=== PATIENT | male | born 1950 | race Caucasian/White ===

== ENCOUNTER 2019-03-10 11:34 | Emergency (ER) | payer OTHER, SELFPAY ==
[2019-03-10 11:34] VITALS: BP 154/97; PULSE 68; RESP 20; TEMP 36.4; O2SAT 96; BMI 31.5
--- NOTE | 2019-03-10 11:38 | ED_ITS ---
Entered by Abi Daniels, acting as scribe for Elin Jordan PA Documented by User: Sandee Marquez MD 03/10/19 15:18 HPI - Fall General: Chief Complaint: Fall Stated Complaint: Fall-hit head Time Seen by Provider: 03/10/19 11:35 [facility] ED PFSH: Statuses (acute, chronic, etc) shown below reflect problem list status as previously entered and may not be historically accurate Social History Smoking and tobacco status: former smoker Physical Exam Const: COMMON NORMALS: no apparent distress, oriented x3 and healthy appearing HENMT: COMMON NORMALS: normocephalic HEAD & SCALP: normocephalic OTHER: very large hematoma to right eye. Eye: COMMON NORMALS: PERRL and EOMs intact bilaterally PUPIL: Yes PERRL Neck/C-Spine: OTHER: in a c collar complain of neck pain. Chest: COMMONS NORMALS: inspection of chest normal and palpation of chest normal Resp: COMMON NORMALS: normal respiratory effort, no retractions, no use of accessory muscles and clear to auscultation bilaterally AUSCULTATION: clear to auscultation bilaterally Cardio: COMMON NORMALS: regular rate, regular rhythm and no murmurs RATE: regular rate RHYTHM: regular rhythm GI: COMMON NORMALS: normal to inspection, nondistended, normoactive bowel sounds, soft to palpation, non-tender and no masses PALPATION: Yes soft Extremity: COMMON NORMALS: normal to inspection and full ROM Neuro: COMMON NORMALS: oriented x3, moves all extremities and no focal motor deficits Psych: COMMON NORMALS: mental status grossly normal, thought process normal and cooperative THOUGHT PROCESS: normal thought process Skin: COMMON NORMALS: no rashes or lesions noted and no wounds GENERAL SKIN EXAM: no rashes or lesions noted Course Vital Signs: Vital signs: Vital Signs Temperature 98.4 F 03/10/19 19:05 Pulse Rate 86 03/10/19 19:05 Respiratory Rate 16 03/10/19 19:05 Blood Pressure 152/96 03/10/19 19:05 Pulse Oximetry 95 03/10/19 19:05 MDM - Fall MDM Narrative: Medical decision making narrative: Saw patient with midlevel Elin Jordan. Patient has a C1 and C2 cervical spine fracture. Patient is currently in a c-collar. I spoke to [facility] and will transfer there for higher level of care for spine surgery. Patient is neurologically intact here. Discharge Plan Discharge Patient Disposition: Xfer Other Clinical Impression: Cervical spine fracture Qualifiers: Encounter type: initial encounter Cervical vertebra fracture level: C1 Fracture type: closed Fracture alignment: nondisplaced Condition: Stable Referrals: Quinton Doyle DO [Family Provider] - Discharge Date/Time: 03/10/19 19:09 Coding Level of Care Code ED Electronic Equipment Installer for Chg Fwd Exam Problem Focused Documented by User: MARY LOU Pabon 03/13/19 17:05 HPI - Fall General: Chief Complaint: Fall Stated Complaint: Fall-hit head Time Seen by Provider: 03/10/19 11:35 Source: patient, EMS and RN notes reviewed Mode of arrival: EMS Limitations: no limitations History of Present Illness: HPI Narrative: 68 yo male presents to ED following a fall. The patient has pain in his head, neck and bilateral knees. He has severe swelling and a laceration above his R eye and his R eye is swollen shut. The patient was not in a C collar upon arrival. The patient is a resident at [facility] senior living. The patient was transferring from his wheelchair to a seat at the table when he lost his balance and fell. The patient has a history of hemorrhagic stroke x 2 and has balance problems due to that. MD complaint: fall Onset (ago): minute(s) (just prior to arrival) Fall from: standing Fall witnessed: yes, by living facility staff Place fall occurred: senior living[facility]NF Loss of consciousness: None Symptoms prior to fall: none Context: tripped/slipped Location of injury: head, face, eyes and neck Location of injury - extremities: Bilateral: knee Severity: severe Quality: throbbing Associated symptoms-after fall: Reports neck pain Review of Systems Const: Denies: fever, chills, body aches or fatigue Eyes: Denies: change in vision, blurry vision, photophobia or eye discharge ENMT: Denies: throat pain, enlarged tonsils, painful swallowing, swelling of lips/tongue, oral sores/lesions, ear pain, ear discharge, nasal discharge, nasal congestion, post nasal drip or facial/sinus pain Resp: Denies: productive cough or non-productive cough Musc: Reports: neck pain All/Imm: Denies: seasonal allergies PFSH ED PFSH: Statuses (acute, chronic, etc) shown below reflect problem list status as previously entered and may not be historically accurate Social History Smoking and tobacco status: former smoker Physical Exam Eye: GENERAL EYE: normal light reflex DIRECT OPHTHALMOSCOPY: Yes normal light reflex OTHER: large R hematoma; there is no evidence for globe injury Course Vital Signs: Vital signs: Vital Signs Temperature 98.4 F 03/10/19 19:05 Pulse Rate 86 03/10/19 19:05 Respiratory Rate 16 03/10/19 19:05 Blood Pressure 152/96 03/10/19 19:05 Pulse Oximetry 95 03/10/19 19:05 MDM - Fall MDM Narrative: Medical decision making narrative: pt arrived via EMS w/o c collar; during my exam he did complain of neck pain so RN was instructed to place c-collar on patient; CT imaging will be obtained and care was transferred to Dr. Marquez. Imaging Data^: CT Head: Radiologist's impression: [place] [address] CT Scan Report Signed Patient: Lavelle Presley #: [id number] : 2Acct#:[id number] Age/Sex: 68 / MADM Date: 03/10/19 Loc: ERRoom/Bed: Attending Dr: Ordering Provider/Ordering MD: Elin Jordan Date of Service: 03/10/19 Procedure(s): CT head wo con* [id number] Accession Number(s): [id number] Report Number: [id number] WS: [id number] CT HEAD NONCONTRAST HISTORY: trauma TECHNIQUE: Contiguous axial imaging performed through the brain in 2.5 mm imaging. Bone and soft tissue windows. Sagittal and coronal reformats reviewed. All CT scans at [facility] use at least one of these dose optimization techniques: automated exposure control; mA and/or kV adjustment per patient size (includes targeted exams where dose is matched to clinical indication); or iterative reconstruction. DLP: 791.11 mGy.cm COMPARISON: 01/09/2018 No acute intracranial hemorrhage, midline shift or mass effect. Moderate atrophy with severe chronic confluent white matter disease. Bilateral basal ganglial lacunar infarcts. Ventricles: Ventricles Axial spaces are moderately dilated on the basis of central and peripheral atrophy. Paranasal sinuses: Extensive bilateral ethmoid air cell disease. No air-fluid levels in the maxillary sinuses as visualized. Mastoid air cells: Mastoid there clear. Increased cerumen along the RIGHT external auditory canal. Calvarium and scalp: No calvarial fracture. There is a large scalp hematoma centered over the RIGHT frontal bone with laceration. Hematoma extends from the RIGHT frontal bone inferiorly by at least 10 cm over the RIGHT orbit and globe. Transverse measurement of 7 cm and hematoma does cross the midline. There is some increased density suggesting may be some active bleeding. Mixed density from various stages of bleeding. Prior banding of the RIGHT globe. CT/CT head wo con* [id number] IMPRESSION: 1. No acute intracranial hemorrhage or edema. 2. Moderate atrophy and prior ischemic disease with mild progression since 01/09/2018. 3. Large scalp hematoma centered over the RIGHT frontal bone and orbit/globe measuring at least 10 x 7 cm. May be some active bleeding as there is mixed density within the hematoma. 4. No skull fracture identified. Facial bone CT to follow. Dictated By:Melissa Mondragon DO Signed By:Melissa Mondragon DOSigned Date/Time:03/10/19 1316 DD/ Other CT: Radiologist's impression: [address] [address] [address] Scan Report Signed Patient: Lavelle Presley #: [id number] : 2Acct#:[id number] Age/Sex: 68 / MADM Date: 03/10/19 Loc: ERRoom/Bed: Attending Dr: Ordering Provider/Ordering MD: Elin Jordan Date of Service: 03/10/19 Procedure(s): CT facial bones wo con* [id number] Accession Number(s): [id number] Report Number: [id number] WS: [id number] CT FACIAL BONES HISTORY: fall; large R periorbital hematoma TECHNIQUE: Images obtained from the supraorbital location through the mandible. Soft tissue and bone windows are reviewed. Coronal and sagittal reformats have also been submitted. DLP: 816.[address] scans at [facility] use at least one of these dose optimization techniques: automated exposure control; mA and/or kV adjustment per patient size (includes targeted exams where dose is matched to clinical indication); or iterative reconstruction. COMPARISON: None available. No facial bone fractures are identified. No air-fluid levels in the frontal sinuses. Mucoperiosteal thickening bilaterally within the ethmoid air cells. There is a large scalp hematoma centered over the RIGHT frontal bone and extending inferiorly over the RIGHT orbit and globe. Hematoma extends lateral to the zygomatic arch and medial over the nasal bones and crosses the midline. No retro-orbital extension. Calcification noted within the intracranial carotid artery. There is a cervical spine fracture identified. There is a C2 fracture which is comminuted. C2 anterolisthesis by 3.2 mm. There is also fracture involving the ring of C1. These fractures will be better described on the following cervical spine CT. CT/CT facial bones wo con* [id number] IMPRESSION: 1. Acute C1 and C2 fractures. These fractures will be better evaluated on the cervical spine CT to follow. 2. No skull fracture. 3. Large scalp hematoma with laceration centered over the RIGHT frontal bone extending over the orbit and globe. Dictated By:Melissa Mondragon DO Signed By:Melissa Mondragon DOSigned Date/Time:03/10/19 1321 DD/ [address] [address] [address] Scan Report Signed Patient: Lavelle Presley #: [id number] : 2Acct#:[id number] Age/Sex: 68 / MADM Date: 03/10/19 Loc: ERRoom/Bed: Attending Dr: Ordering Provider/Ordering MD: Elin Jordan Date of Service: 03/10/19 Procedure(s): CT cervical spin wo con* [id number] Accession Number(s): [id number] Report Number: [id number] WS: [id number] CT CERVICAL SPINE HISTORY: fall; neck pain TECHNIQUE: Contiguous 2.5 mm axial imaging performed through the entire cervical spine. Sagittal and coronal reformats also performed. All CT scans at [facility] use at least one of these dose optimization techniques: automated exposure control; mA and/or kV adjustment per patient size (includes targeted exams where dose is matched to clinical indication); or iterative reconstruction. DLP: 678.75 mGy.cm COMPARISON: 01/09/2018 Craniocervical junction is normally aligned. C1: Burst fracture. There are fractures involving the anterior ring of C1 and additional bilateral fractures through the posterior ring. There is very slight lateral displacement of the RIGHT articular mass. C2: C2 anterolisthesis by 3.3 mm is similar to the prior study. There is an acute odontoid fracture. Fracture extends through the base of the odontoid process. 2.5 mm separation along the odontoid process. T2: New anterior compression fracture involving T2. Sclerosis along the superior endplate of the T2 vertebral body with a small avulsion fracture extending anteriorly from the superior endplate. There is mild widening of the facet joints of C2 and C3 which is new since 01/09/2018 suggesting ligamentous injury. Severe degenerative disc disease at C5-6, C6-7. Multilevel facet joint arthropathy and hypertrophic bone formation. Multilevel central and bilateral foraminal stenosis. No additional acute fractures are identified. Lung apices are clear. Notified Dr. MARQUEZ at 03/10/2019 1:[address]/CT cervical spin wo con* [id number] IMPRESSION: 1. Yung type fracture involving C1. Burst fracture of the anterior and posterior ring. 2. Comminuted fracture involving the base of the odontoid process with separation by 2.5 mm. 3. C2 anterolisthesis by 3.3 mm is similar to the prior study. 4. New anterior compression fracture of T2 without retropulsion. 5. Severe multilevel facet joint arthropathy with multilevel areas of stenosis in the cervical spine. 6. New mild diastases of the facet joints of C2 and C3 suggesting ligamentous injury. Dictated By:Melissa Mondragon DO Signed By:Melissa Mondragon DOSigned Date/Time:03/10/19 1341 DD/ Discharge Plan Discharge Patient Disposition: Xfer Other Clinical Impression: Cervical spine fracture Qualifiers: Encounter type: initial encounter Cervical vertebra fracture level: C1 Fracture type: closed Fracture alignment: nondisplaced Condition: Stable Referrals: Quinton Doyle DO [Family Provider] - Discharge Date/Time: 03/10/19 19:09 Coding Level of Care Code ED Electronic Equipment Installer for Chg Fwd Exam Problem Focused The documentation recorded by the Frances cruz Valerie R, accurately reflects the service I personally performed and the decisions made by , Elin Jordan PA Mar 10, 2019 11:34
--- NOTE | 2019-03-10 11:45 | CT_ITS ---
WS: [id number] CT FACIAL BONES HISTORY: fall; large R periorbital hematoma TECHNIQUE: Images obtained from the supraorbital location through the mandible. Soft tissue and bone windows are reviewed. Coronal and sagittal reformats have also been submitted. DLP: 816.[address] scans at [facility] use at least one of these dose optimization techniques: automat ed exposure control; mA and/or kV adjustment per patient size (includes targeted exams where dose is matched to clinical indication); or iterative reconstruction. COMPARISON: None available. No facial bone fractures are identified. No air-fluid levels in the frontal sinuses. Mucoperiosteal t hickening bilaterally within the ethmoid air cells. There is a large scalp hematoma centered over the RIGHT frontal bone and extending inferiorly over the RIGHT orbit and globe. Hematoma extends lateral to the zygomatic arch and medial over the nasal bones and crosses the midline. No retro-orbital exte nsion. Calcification noted within the intracranial carotid artery. There is a cervical spine fracture identified. There is a C2 fracture which is comminuted. C2 anterol isthesis by 3.2 mm. There is also fracture involving the ring of C1. These fractures will be better d escribed on the following cervical spine CT. CT/CT facial bones wo con* [id number] IMPRESSION: 1. Acute C1 and C2 fractures. These fractures will be better evaluated on the cervical spine CT to follow. 2. No skull fracture. 3. Large scalp hematoma with laceration centered over the RIGHT frontal bone e xtending over the orbit and globe.
--- NOTE | 2019-03-10 11:45 | CT_ITS ---
WS: [id number] CT HEAD NONCONTRAST HISTORY: trauma TECHNIQUE: Contiguous axial imaging performed through the brain in 2.5 mm imaging. Bone and soft tiss ue windows. Sagittal and coronal reformats reviewed. All CT scans at [facility] use at ast one of these dose optimization techniques: automated exposure control; mA and/or kV adjustment pe r patient size (includes targeted exams where dose is matched to clinical indication); or iterative r econstruction. DLP: 791.11 mGy.cm COMPARISON: 01/09/2018 No acute intracranial hemorrhage, midline shift or mass effect. Moderate atrophy with severe chronic confluent white matter disease. Bilateral basal ganglial lacunar infarcts. Ventricles: Ventricles Axial spaces are moderately dilated on the basis of central and peripheral atrophy. Paranasal sinuses: Extensive bilateral ethmoid air cell disease. No air-fluid levels in the maxillary sinuses as visualized. Mastoid air cells: Mastoid there clear. Increased cerumen along the RIGHT external auditory canal. Calvarium and scalp: No calvarial fracture. There is a large scalp hematoma centered over the RIGHT f rontal bone with laceration. Hematoma extends from the RIGHT frontal bone inferiorly by at least 10 c m over the RIGHT orbit and globe. Transverse measurement of 7 cm and hematoma does cross the midline. There is some increased density suggesting may be some active bleeding. Mixed density from various s tages of bleeding. Prior banding of the RIGHT globe. CT/CT head wo con* [id number] IMPRESSION: 1. No acute intracranial hemorrhage or edema. 2. Moderate atrophy and prior ischemic disease with mild progression since 01/09/2018. 3. Large scalp hematoma centered over the RIGHT frontal bone and orbit/globe m easuring at least 10 x 7 cm. May be some active bleeding as there is mixed dens ity within the hematoma. 4. No skull fracture identified. Facial bone CT to follow.
--- NOTE | 2019-03-10 11:45 | CT_ITS ---
WS: [id number] CT CERVICAL SPINE HISTORY: fall; neck pain TECHNIQUE: Contiguous 2.5 mm axial imaging performed through the entire cervical spine. Sagittal and coronal reformats also performed. All CT scans at [facility] use at least one of these do se optimization techniques: automated exposure control; mA and/or kV adjustment per patient size (inc ludes targeted exams where dose is matched to clinical indication); or iterative reconstruction. DLP: 678.75 mGy.cm COMPARISON: 01/09/2018 Craniocervical junction is normally aligned. C1: Burst fracture. There are fractures involving the anterior ring of C1 and additional bilateral fr actures through the posterior ring. There is very slight lateral displacement of the RIGHT articular mass. C2: C2 anterolisthesis by 3.3 mm is similar to the prior study. There is an acute odontoid fracture. Fracture extends through the base of the odontoid process. 2.5 mm separation along the odontoid proce ss. T2: New anterior compression fracture involving T2. Sclerosis along the superior endplate of the T2 v ertebral body with a small avulsion fracture extending anteriorly from the superior endplate. There is mild widening of the facet joints of C2 and C3 which is new since 01/09/2018 suggesting ligam entous injury. Severe degenerative disc disease at C5-6, C6-7. Multilevel facet joint arthropathy and hypertrophic b one formation. Multilevel central and bilateral foraminal stenosis. No additional acute fractures are identified. Lung apices are clear. Notified Dr. MARQUEZ at 03/10/2019 1:[address]/CT cervical spin wo con* [id number] IMPRESSION: 1. Yung type fracture involving C1. Burst fracture of the anterior and po sterior ring. 2. Comminuted fracture involving the base of the odontoid process with separat ion by 2.5 mm. 3. C2 anterolisthesis by 3.3 mm is similar to the prior study. 4. New anterior compression fracture of T2 without retropulsion. 5. Severe multilevel facet joint arthropathy with multilevel areas of stenosis in the cervical spine. 6. New mild diastases of the facet joints of C2 and C3 suggesting ligamentous injury.
[2019-03-10] MEDS: ondansetron 2 mg/ML SDV 2 mL 4 MG IVP (12:23)
[2019-03-10] MEDS: tetanus-diphtheria tox (adult) 0.5 mL SDV IM (12:25)
--- NOTE | 2019-03-10 15:30 | PC.NURSE ---
Report called to DIA Oliva. Report called to LACEY Capps on 6E at [phone].
[2019-03-10 19:05] VITALS: BP 152/96; PULSE 86; RESP 16; TEMP 36.9; O2SAT 95
== END 2019-03-10 19:09 | disposition other institution (70) ==
PROVIDERS: Emergency Provider Emergency Medicine; Family Provider Internal Medicine
DX: S12.001A Unspecified nondisplaced fracture of first cervical vertebra, initial encounter for closed fracture (principal); Z87.891 Personal history of nicotine dependence; W19.XXXA Unspecified fall, initial encounter; Y92.129 Unspecified place in nursing home as the place of occurrence of the external cause; Z23 Encounter for immunization; S01.111A Laceration without foreign body of right eyelid and periocular area, initial encounter
CPT/HCPCS: 70450; 70486; 72125; 90471; 90714; 96374; 97760; 99281; 99285; J2405; L0174

== ENCOUNTER → 2019-09-09 13:08 | Outpatient (BNVA) | payer OTHER, SELFPAY | PROVIDERS: Family Provider Internal Medicine; Referring Provider Internal Medicine; Visit Provider Orthopaedic Surgery | DX: M17.0 Bilateral primary osteoarthritis of knee (principal); M25.462 Effusion, left knee; M25.461 Effusion, right knee | CPT/HCPCS: 73560; 73565 ==

== ENCOUNTER 2020-04-18 19:45 | Emergency (ER) | payer OTHER, SELFPAY ==
[2020-04-18 19:50] VITALS: BP 167/83; PULSE 84; RESP 17; TEMP 36.9; O2SAT 95; BMI 34.4
--- NOTE | 2020-04-18 20:23 | XR_ITS ---
WS: [id number] XR femur RT min 2V* [id number] REASON FOR EXAM: fall FINDINGS: Total right hip arthroplasty. No dislocation or fracture of the prosthesis or bony structure. Distal femur intact. XR/XR femur RT min 2V* [id number] IMPRESSION: No acute abnormality.
--- NOTE | 2020-04-18 20:23 | CTR_ITS ---
PROCEDURE INFORMATION: Exam: CT Head Without Contrast Exam date and time: 04/18/2020 8:29 PM Age: 69 years old Clinical indication: Injury or trauma; Blunt trauma (contusions or hematomas); Consciousness not specified; Patient HX: Nh PT w dementia - unwitnessed fall - unknown loc TECHNIQUE: Imaging protocol: Computed tomography of the head without contrast. Radiation optimization: All CT scans at this facility use at least one of these dose optimization techniques: automated exposure control; mA and/or kV adjustment per patient size (includes targeted exams where dose is matched to clinical indication); or iterative reconstruction. ADDITIONAL STUDY INFORMATION: Total DLP (mGy-cm): 1007.69 COMPARISON: CT head wo con* [id number] 03/10/2019 1:03 PM FINDINGS: Examination is limited by artifacts from patient motion. There is approximately 12 x 10 x 7 mm area of increased density in the right richard, most compatible with recent hemorrhage, could represent shear injury related to recent trauma, please correlate clinically. There is prominent low density in the bilateral periventricular white matter which may represent chronic small vessel ischemic disease in the appropriate clinical setting. The possibility of superimposed acute infarctions cannot be excluded; consider MRI brain (including diffusion images) for further assessment if clinically warranted and if patient has no contraindication to MRI. There are prominent intracranial arterial calcifications. There is moderate cerebral cortical volume loss. Ventricles do not appear significantly dilated. No definite depressed calvarial fracture is demonstrated. There is opacification in visualized bilateral ethmoid air cells, most compatible with mucosal disease. Visualized mastoid air cells demonstrate no significant opacification. CT/CT head wo con* [id number] IMPRESSION: Examination is limited by artifacts from patient motion. There is approximately 12 x 10 x 7 mm area of increased density in the right richard, most compatible with recent hemorrhage, could represent shear injury related to recent trauma, please correlate clinically. Probable prominent chronic ischemic changes as discussed above. THIS REPORT CONTAINS FINDINGS THAT MAY BE CRITICAL TO PATIENT CARE. The findings were verbally communicated via telephone conference with ELI Guillory at 9:05 PM CDT on 04/18/2020. The findings were acknowledged, understood and read back by ELI Guillory. Radiation Dose CTDIVOL = (mGy): DLP = 1007.69 (mGy-cm)
--- NOTE | 2020-04-18 20:23 | XR_ITS ---
WS: [id number] XR tibia fibula RT 2V [id number] REASON FOR EXAM: fall FINDINGS: No focal bony abnormality. No significant soft tissue abnormality. XR/XR tibia fibula RT 2V [id number] IMPRESSION: No acute abnormality.
--- NOTE | 2020-04-18 20:51 | ED_ITS ---
HPI - Fall General: Chief Complaint: Fall Stated Complaint: FALL Time Seen by Provider: 04/18/20 19:53 History of Present Illness: HPI Narrative: 69-year-old male retirement patient comes in after a fall. He probably struck his head, although he does not remember. skilled nursing staff believes that he did. His main complaint is right knee pain. He has a history of dementia. However, he is awake and talking sensibly. complaint: fall Onset (ago): minute(s) Fall from: other (Unknown) Fall witnessed: no Place fall occurred: retirement/SNF Loss of consciousness: None Prolonged down time: no Symptoms prior to fall: none Quality: aching and throbbing Associated symptoms-after fall: Reports other; Denies abdominal pain, chest pain, confusion, headache(s), neck pain or short of breath Review of Systems Const: Denies: fever(s) Eyes: Denies: change in vision Card: Denies: chest pain Resp: Denies: dyspnea or productive cough GI: Denies: abdominal pain, nausea or vomiting Musc: Denies: neck pain Neuro: Denies: headache(s) or confusion PFSH ED PFSH: Social History Smoking and tobacco status: former smoker Physical Exam Const: COMMON NORMALS: no acute distress and alert Eye: COMMON NORMALS: EOMs intact bilaterally Chest: COMMONS NORMALS: normal inspection of the chest Resp: COMMON NORMALS: normal respiratory effort, No use of accessory muscles and clear to auscultation bilaterally AUSCULTATION: clear to auscultation bilaterally Cardio: COMMON NORMALS: regular rate and regular rhythm RATE: regular rate RHYTHM: regular rhythm GI: COMMON NORMALS: Normal to inspection, nondistended, normoactive bowel sounds present, Soft to palpation and non-tender PALPATION: Yes Soft to palpation Extremity: NARRATIVE EXTREMITY EXAM: Exam of the right lower extremity reveals distal femur tenderness. There is no tibial tenderness. There is no deformity. Knee joint is effused. Neuro: SENSORIUM/ORIENTATION: Yes alert Course Consultations: Consultation #1: Brain, ER [facility] Vital Signs: Vital signs: Vital Signs Temperature 98.4 F 04/18/20 19:50 Pulse Rate 84 04/18/20 21:57 Respiratory Rate 14 04/18/20 21:57 Blood Pressure 182/96 04/18/20 21:57 Pulse Oximetry 96 04/18/20 21:57 MDM - Fall MDM Narrative: Medical decision making narrative: CT shows richard hemorrhage. he is awake and alert. answering most questions appropriately. asymptomatic. spoke with his daughter who is a nurse. She agrees and wishes for transfer for neurosurgical eval/care. spoke with [facility]. they accept in [facility]. no helo transfers available due to weather, so will have to go by ground ems. As this is a traumatic brain bleed, the patient is given tranexamic acid. Lab Data: Labs: Lab Results 04/18/20 04/18/20 04/18/20 Range/Units 21:30 21:30 21:30 WBC 13.6 H (4.0-10.0) 10^3/ uL RBC 5.15 (4.1-5.3) 10^6/u L Hgb 14.7 (11.7-16.6) g/dL Hct 45.5 (42.0-52.0) % MCV 88.3 (80-94) fL MCH 28.5 (28.0-34.0) pg MCHC 32.3 (30.0-36.0) g/dL RDW 13.8 (12.1-15.1) % Plt Count 292 (130-400) 10^3/c mm MPV 8.7 (7.4-10.4) fL Neut % (Auto) 88.1 % Lymph % (Auto) 3.7 % Baker % (Auto) 7.2 % Eos % (Auto) 0.1 % Baso % (Auto) 0.3 % Neut # (Auto) 11.95 H (1.8-7.7) 10^3/u L Lymph # (Auto) 0.5 L (0.8-4.8) 10^3/u L Baker # (Auto) 1.0 H (0.2-0.9) 10^3/u L Eos # (Auto) 0.0 (0.0-0.8) 10^3/u L Baso # (Auto) 0.0 (0.0-0.1) 10^3/u L Nucleated RBC % (a uto) 0 % Nucleated RBCs # 0.0 /100WBC PT 14.10 (12.1-14.9) SECO NDS INR 1.06 (0.8-1.2) APTT 32.1 (23.9-36.7) SECO NDS Sodium 138 (136-145) mmol/L Potassium 4.3 (3.5-5.1) mmol/L Chloride 98 (98-107) mmol/L Carbon Dioxide 30 H (22-29) mmol/L Anion Gap 14.3 (5-19) BUN 18 (8-23) mg/dL Creatinine 0.8 (0.7-1.2) mg/dL GFR Calculation 96.1 (90-130) mL/min Glucose 113 (65-115) mg/dL Calculated Osmolal ity 289 (285-295) mOsm/k g Calcium 8.5 (8.5-10.5) mg/dL Total Bilirubin 0.7 (0.15-1.2) mg/dL AST 13 (0-40) U/L ALT 16 (0-41) U/L Alkaline Phosphata se 96 (40-130) IU/L Creatine Kinase 110 (39-308) U/L Troponin T Gen 5 n g/L (0-15) ng/L Total Protein 6.4 L (6.6-8.7) g/dL Albumin 3.8 (3.5-5.2) g/dL Globulin 2.6 (1.3-4.6) g/dL Urine Color (Yellow) Urine Appearance (CLEAR) Urine pH (5-7) Ur Specific Gravit y (1.005-1.030) Urine Protein (Negative) Urine Glucose (UA) (Normal) Urine Ketones (Negative) Urine Blood (Negative) Urine Nitrate (Negative) Urine Bilirubin (Negative) Urine Urobilinogen (Negative) mg/dL Ur Leukocyte Nazia ase (Negative) Urine RBC (0-2) /hpf Urine WBC (0-5) /hpf Ur Squamous Epith Cells (0-5) /hpf Amorphous Sediment Urine Bacteria (NONE) /hpf 04/18/20 04/18/20 Range/Units 21:30 21:40 WBC (4.0-10.0) 10^3/ uL RBC (4.1-5.3) 10^6/u L Hgb (11.7-16.6) g/dL Hct (42.0-52.0) % MCV (80-94) fL MCH (28.0-34.0) pg MCHC (30.0-36.0) g/dL RDW (12.1-15.1) % Plt Count (130-400) 10^3/c mm MPV (7.4-10.4) fL Neut % (Auto) % Lymph % (Auto) % Baker % (Auto) % Eos % (Auto) % Baso % (Auto) % Neut # (Auto) (1.8-7.7) 10^3/u L Lymph # (Auto) (0.8-4.8) 10^3/u L Baker # (Auto) (0.2-0.9) 10^3/u L Eos # (Auto) (0.0-0.8) 10^3/u L Baso # (Auto) (0.0-0.1) 10^3/u L Nucleated RBC % (a uto) % Nucleated RBCs # /100WBC PT (12.1-14.9) SECO NDS INR (0.8-1.2) APTT (23.9-36.7) SECO NDS Sodium (136-145) mmol/L Potassium (3.5-5.1) mmol/L Chloride (98-107) mmol/L Carbon Dioxide (22-29) mmol/L Anion Gap (5-19) BUN (8-23) mg/dL Creatinine (0.7-1.2) mg/dL GFR Calculation (90-130) mL/min Glucose (65-115) mg/dL Calculated Osmolal ity (285-295) mOsm/k g Calcium (8.5-10.5) mg/dL Total Bilirubin (0.15-1.2) mg/dL AST (0-40) U/L ALT (0-41) U/L Alkaline Phosphata se (40-130) IU/L Creatine Kinase (39-308) U/L Troponin T Gen 5 n g/L 13 (0-15) ng/L Total Protein (6.6-8.7) g/dL Albumin (3.5-5.2) g/dL Globulin (1.3-4.6) g/dL Urine Color Yellow (Yellow) Urine Appearance Clear (CLEAR) Urine pH 5 (5-7) Ur Specific Gravit y 1.015 (1.005-1.030) Urine Protein Neg (Negative) Urine Glucose (UA) Norm (Normal) Urine Ketones 1+ H (Negative) Urine Blood 2+ H (Negative) Urine Nitrate Negative (Negative) Urine Bilirubin 1+ H (Negative) Urine Urobilinogen 1 H (Negative) mg/dL Ur Leukocyte Nazia ase Negative (Negative) Urine RBC 25-40 H (0-2) /hpf Urine WBC 0-4 H (0-5) /hpf Ur Squamous Epith Cells 0-4 H (0-5) /hpf Amorphous Sediment Not Reportable Urine Bacteria Trace (NONE) /hpf Critical Care Time Critical Care Time: Critical Care Time: Yes Total Critical Care Time: 35 Attestation: This case had a high probability of a clinically significant, sudden, or life threatening deterioration of this patient's condition which required my full and direct attention, intervention and personal management. Discharge Plan Discharge Patient Disposition: Xfer Short-Term Hosp Clinical Impression: Intracranial hemorrhage Condition: Stable Referrals: Quinton Doyle DO [Primary Care Provider] - Coding Level of Care Code ED Barrel Burner for Chg Fwd Exam Detailed
[2020-04-18 21:03] VITALS: BP 174/100; PULSE 83; RESP 14; O2SAT 94
--- NOTE | 2020-04-18 21:28 | ECG_ITS ---
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 Measurements Intervals [place] Rate: 84 P: 48 TN: 160 QRS: 4 QRSD: 112 T: 16 QT: 384 QTc: 455 Interpretive Statements SINUS RHYTHM INCOMPLETE RIGHT BUNDLE BRANCH BLOCK [90+ ms QRS DURATION, TERMINAL R IN V1/V2, 40+ ms S IN I/aVL/V4/V5/V6] No previous ECG available for comparison Electronically Signed On 04-21-2020 7:38:01 CDT by Maria Guadalupe Benson M.D. [id number] f
[2020-04-18 21:43] LABS: Basophils % 0.3 %; Eosinophils % 0.1 %; Hematocrit 45.5 % (42.0-52.0); Hemoglobin 14.7 g/dL (11.7-16.6); Lymphocytes # 0.5 10^3/uL (0.8-4.8); Lymphocytes % 3.7 %; Mean Corpuscular HGB Conc 32.3 g/dL (30.0-36.0); Mean Corpuscular Hemoglobin 28.5 pg (28.0-34.0); Mean Corpuscular Volume 88.3 fL (80-94); Mean Platelet Volume 8.7 fL (7.4-10.4); Monocytes % 7.2 %; Neutrophils # 11.95 10^3/uL (1.8-7.7); Neutrophils % 88.1 %; Nucleated Red Blood Cells % 0 %; Platelet Count 292 10^3/cmm (130-400); Red Blood Count 5.15 10^6/uL (4.1-5.3); Red Cell Distribution Width 13.8 % (12.1-15.1); White Blood Count 13.6 10^3/uL (4.0-10.0)
[2020-04-18 21:55] LABS: Alanine Aminotransferase 16 U/L (0-41); Albumin Level 3.8 g/dL (3.5-5.2); Alkaline Phosphatase 96 IU/L (40-130); Anion Gap 14.3 (5-19); Aspartate Amino Transferase 13 U/L (0-40); Blood Urea Nitrogen 18 mg/dL (8-23); Calcium 8.5 mg/dL (8.5-10.5); Carbon Dioxide 30 mmol/L (22-29); Chloride 98 mmol/L (98-107); Creatine Phosphokinase 110 U/L (39-308); Globulin 2.6 g/dL (1.3-4.6); Glomerular Filtration Rate 96.1 mL/min (90-130); Glucose 113 mg/dL (65-115); INR 1.06 (0.8-1.2); Osmolality Calculated 289 mOsm/kg (285-295); Potassium 4.3 mmol/L (3.5-5.1); Sodium 138 mmol/L (136-145); Total Bilirubin 0.7 mg/dL (0.15-1.2); Total Protein 6.4 g/dL (6.6-8.7)
[2020-04-18 21:56] LABS: Partial Thromboplastin Time 32.1 SECONDS (23.9-36.7)
[2020-04-18 21:57] VITALS: BP 182/96; PULSE 84; RESP 14; O2SAT 96
[2020-04-18 21:57] LABS: Troponin T (5th) Once 13 ng/L (0-15)
[2020-04-18 22:18] LABS: Glucose Urine UA Norm (Normal); Protein Urine Neg (Negative); Specific Gravity, Urine 1.015 (1.005-1.030); Urine Appearance Clear (CLEAR); Urine Color Yellow (Yellow); pH Urine 5 (5-7)
[2020-04-18 22:19] LABS: Add Urine Microscopic? YES; Bilirubin Urine 1+ (Negative); Blood Urine 2+ (Negative); Ketones Urine 1+ (Negative); Leukocyte Esterase Urine Negative (Negative); Nitrate Urine Negative (Negative); Urobilinogen Urine 1 mg/dL (Negative)
[2020-04-18 22:20] LABS: Add Urine Culture? Yes; Bacteria Urine TRACE /hpf; RBC Urine 25-40 /hpf (0-2); Squamous Epithelial Cell Urine 0-4 /hpf (0-5); WBC Urine 0-4 /hpf (0-5)
[2020-04-18] MEDS: ondansetron 2 mg/ML SDV 2 mL 4 MG IVP (22:21)
== END 2020-04-18 22:21 | disposition short-term general hospital (02) ==
PROVIDERS: Emergency Provider Emergency Medicine; PCP Internal Medicine
DX: S06.309A Unspecified focal traumatic brain injury with loss of consciousness of unspecified duration, initial encounter (principal); W19.XXXA Unspecified fall, initial encounter; Z87.891 Personal history of nicotine dependence
CPT/HCPCS: 51702; 70450; 73552; 73590; 80053; 81001; 82550; 84484; 85025; 85610; 85730; 87086; 93005; J2405

== ENCOUNTER 2020-10-28 09:03 | Outpatient (CLI) | payer OTHER, SELFPAY ==
--- NOTE | 2020-10-28 09:13 | USCV_ITS ---
Elvin Presley Age: 69 Gender: M : 1950 Exam Date: 10/28/2020 09:34 Ordering Phys: Juliette Crooks MD Technologist: Salma Beard Exam Location: [facility] Indication: NON HEALING SKIN LEASIONS Risk Factors: Previous Vascular Surgery: RIGHT LEFT Waveform Velocity (cm/s) Velocity (cm/s) Waveform Triphasic 165.6 Iliac Prox 152.6 Triphasic Triphasic 135.0 Iliac Mid 125.5 Triphasic Triphasic 136.2 Iliac Distal 144.9 Triphasic Triphasic 146.9 INFECTION CONTROL RN 116.5 Triphasic Triphasic 104.6 SFA Prox 153.8 Triphasic Triphasic 92.6 SFA Mid 95.9 Triphasic Triphasic 110.3 SFA Dist 131.2 Triphasic Triphasic 73.0 POP 89.1 Triphasic Biphasic 104.2 INSURANCE CLAIMS EXAMINER N/A N/A DPA N/A FINDINGS Very limited exam, pt unable to stand or walk. Open wounds and bandages, very limited. Unable to imaged Rt DPA, and Left DPA and INSURANCE CLAIMS EXAMINER due to pain. Unable to obtain BG's due to pain Normal Doppler flow velocities Normal Doppler waveforms CONCLUSIONS Possibly no significant arterial obstruction in the visualized arteries mentioned above. The left dorsalis pedis, posterior tibial and the right dorsalis pedis arteries were not visualized because of the bandages Dr Sandra Lewis MD [facility] (Electronically Signed) Final Date: 28 October 2020 20:30 S
== END 2020-10-28 09:04 | disposition home or self-care (01) ==
LOC: RAD 09:09
PROVIDERS: PCP Internal Medicine; Visit Provider Family Medicine
DX: L98.9 Disorder of the skin and subcutaneous tissue, unspecified (principal)
CPT/HCPCS: 93925

== ENCOUNTER 2021-08-26 04:54 | Outpatient (CLI) | payer MEDICARE, SELFPAY ==
[2021-08-26 05:05] LABS: Add Urine Microscopic? NO; Charge for UA Resulting for Rev
[2021-08-26 05:10] LABS: Basophils # 0.1 10^3/uL (0.0-0.1); Basophils % 0.6 %; Bilirubin Urine Neg (Negative); Blood Urine Neg (Negative); Eosinophils # 0.4 10^3/uL (0.0-0.8); Eosinophils % 3.3 %; Glucose Urine UA Norm (Normal); Hemoglobin 13.5 g/dL (11.7-16.6); Ketones Urine Negative (Negative); Leukocyte Esterase Urine Negative (Negative); Lymphocytes % 17.5 %; Mean Corpuscular HGB Conc 32.9 g/dL (30.0-36.0); Mean Corpuscular Hemoglobin 29.5 pg (28.0-34.0); Mean Corpuscular Volume 89.5 fl (80-94); Mean Platelet Volume 8.7 fL (7.4-10.4); Monocytes % 8.6 %; Neutrophils # 7.71 10^3/uL (1.8-7.7); Neutrophils % 69.2 %; Nitrate Urine Negative (Negative); Nucleated Red Blood Cells % 0 %; Platelet Count 305 10^3/cmm (130-400); Protein Urine Neg (Negative); Red Blood Count 4.58 10^6/uL (4.1-5.3); Red Cell Distribution Width 13.5 % (12.1-15.1); Urine Appearance Clear (CLEAR); Urine Color Yellow (Yellow); Urobilinogen Urine Norm (Negative); White Blood Count 11.2 10^3/uL (4.0-10.0); pH Urine 7 (5-7)
[2021-08-26 05:31] LABS: Alanine Aminotransferase 18 U/L (0-41); Albumin Level 4.1 g/dL (3.5-5.2); Alkaline Phosphatase 107 IU/L (40-130); Anion Gap 14.2 (5-19); Aspartate Amino Transferase 13 U/L (0-40); Blood Urea Nitrogen 19 mg/dL (8-23); Calcium 9.3 mg/dL (8.5-10.5); Carbon Dioxide 31 mmol/L (22-29); Chloride 97 mmol/L (98-107); Glomerular Filtration Rate 74.1 mL/min (90-130); Glucose 95 mg/dL (65-115); Osmolality Calculated 290 mOsm/kg (285-295); Potassium 3.2 mmol/L (3.5-5.1); Sodium 139 mmol/L (136-145); Total Bilirubin 0.5 mg/dL (0.15-1.2); Total Protein 7.1 g/dL (6.6-8.7)
== END 2021-08-26 04:55 | disposition home or self-care (01) ==
PROVIDERS: PCP Internal Medicine; Visit Provider Internal Medicine
DX: Z01.89 Encounter for other specified special examinations (principal)
CPT/HCPCS: 80053; 81003; 85025

== ENCOUNTER 2021-11-14 02:08 | Emergency (ER) | payer OTHER, SELFPAY ==
[2021-11-14] VITALS (8 sets, daily range): BP systolic 116–152; BP diastolic 63–89; PULSE 73–89; RESP 14–24; TEMP 37.6; O2SAT 94–98; BMI 33.0
--- NOTE | 2021-11-14 02:34 | ECG_ITS ---
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 Measurements Intervals [place] Rate: 77 P: 23 TX: 156 QRS: 13 QRSD: 97 T: 41 QT: 378 QTc: 429 Interpretive Statements SINUS RHYTHM POSSIBLE RIGHT VENTRICULAR CONDUCTION DELAY [RSR (QR) IN V1/V2] NONSPECIFIC ST & T-WAVE ABNORMALITY INTERPRETATION BASED ON A DEFAULT AGE OF 40 YEARS Compared to ECG 04/18/2020 21:53:00 T-wave abnormality now present Incomplete right bundle-branch block no longer present Electronically Signed On 11-14-2021 21:20:03 CDT by Sandra Lewis M.D. [id number]
--- NOTE | 2021-11-14 02:34 | XRR_ITS ---
PROCEDURE INFORMATION: Exam: XR Chest Exam date and time: 11/14/2021 2:46 AM Age: 70 years old Clinical indication: Shortness of breath and other: Weakness; Additional info: SOB TECHNIQUE: Imaging protocol: Radiologic exam of the chest. Views: 1 view. COMPARISON: CT cervical spin wo con* [id number] 03/10/2019 1:09 PM FINDINGS: Lungs: The lung parenchyma is clear. Pleural spaces: No pneumothorax. No pleural effusion. Heart/Mediastinum: The cardiomediastinal silhouette is within normal limits. Bones/joints: Unremarkable. XR/XR chest 1V portable [id number] IMPRESSION: No acute cardiopulmonary abnormality.
--- NOTE | 2021-11-14 02:35 | CTR_ITS ---
PROCEDURE INFORMATION: Exam: CT Head Without Contrast Exam date and time: 11/14/2021 2:56 AM Age: 70 years old Clinical indication: Other: Weakness, shob TECHNIQUE: Imaging protocol: Computed tomography of the head without contrast. Radiation optimization: All CT scans at this facility use at least one of these dose optimization techniques: automated exposure control; mA and/or kV adjustment per patient size (includes targeted exams where dose is matched to clinical indication); or iterative reconstruction. COMPARISON: CT head wo con* [id number] 04/18/2020 8:49 PM RADIATION DOSE METRICS: Total DLP (mGy-cm): 1302.58 FINDINGS: Brain: Diffuse cerebral atrophy noted. Subcortical and periventricular white matter hypoattenuation likely consistent with moderate chronic microvascular ischemic disease. Cerebral ventricles: The ventricles are within normal limits. Paranasal sinuses: Minimal mucosal thickening in the ethmoid air cells, similar to prior exam. Mastoid air cells: The visualized mastoid air cells are well aerated. Orbital cavities: Postsurgical changes in the right globe. Bones/joints: The osseous structures are intact. Soft tissues: Unremarkable. CT/CT head wo con* [id number] IMPRESSION: 1. No acute intracranial abnormality identified. 2. Diffuse cerebral atrophy similar to prior exam. 3. Moderate chronic microvascular ischemic disease, similar to prior exam.
--- NOTE | 2021-11-14 02:35 | ED_ITS ---
HPI - SOB/Dyspnea General: Chief Complaint: Shortness of Breath/Dyspnea Stated Complaint: WEAKNESS Time Seen by Provider: 11/14/21 02:12 Source: patient and EMS History of Present Illness: HPI Narrative: 70-year-old male residential patient who is not usually on oxygen. He presents with generalized weakness, and increasing shortness of breath does have a history of peripheral edema, heart failure, and COPD. He is on fluid rest rictions for the edema. Earlier this week, his Bumex was decreased from 3 times a day to 2 times a day. He has noted increased lower extremity swelling, increased weakness, and is now on oxygen due to shortness of breath. He denies fever. He denies significant cough or sputum production. Pertinent past history: COPD Onset (ago): hour(s) (12) Timing: constant and progressively worsening Severity: moderate Exacerbating factors: lying flat, exertion and other Relieving factors: oxygen Known history of: COPD Associated symptoms: Reports orthopnea; Deny abdominal pain, chest congestion, chest pain, cough, diaphoresis, dizziness, fever(s), nausea, palpitations, syncope or vomiting Treatment prior to arrival: oxygen Review of Systems Const: Denies: fever(s) or diaphoresis Eyes: Denies: change in vision ENMT: Denies: throat pain Card: Reports: orthopnea; Denies: chest pain, palpitations or syncope Resp: Reports: dyspnea; Denies: productive cough, non-productive cough or chest congestion GI: Denies: abdominal pain, nausea or vomiting Neuro: Denies: dizziness PFSH ED PFSH: Social History Smoking and tobacco status: former smoker Physical Exam Const: GENERAL APPEARANCE: cooperative, ill appearing and frail appearing HENMT: COMMON NORMALS: normocephalic, atraumatic and Normal external nose present HEAD & SCALP: normocephalic and atraumatic FACE & SINUS: normal facial exam and face symmetric NOSE: Normal external nose present Eye: COMMON NORMALS: Equal, round and reactive pupils present and EOMs intact bilaterally PUPIL: Yes Equal, round and reactive pupils present Neck/C-Spine: GENERAL: Yes trachea midline Chest: CHEST: Yes Symmetrical chest wall rise Resp: COMMON NORMALS: normal respiratory effort, No retractions, No use of accessory muscles and clear to auscultation bilaterally AUSCULTATION: clear to auscultation bilaterally and diminished lung sounds Cardio: COMMON NORMALS: regular rate and regular rhythm RATE: regular rate RHYTHM: regular rhythm GI: COMMON NORMALS: Normal to inspection, nondistended, normoactive bowel sounds present Extremity: NARRATIVE EXTREMITY EXAM: Significant bilateral lower extremity edema with stasis dermatitis, weeping edema, and a couple of ulcerations present. GENERAL: Yes edema Neuro: INDIO COMA SCALE: document GCS findings Indio coma scale eye opening: Spontaneous Indio coma scale verbal response: Orientated Indio coma scale motor response: Obey commands Indio coma scale total score: 15 SENSORY EXAM: Yes extremities (intact) Psych: COMMON NORMALS: speech normal SPEECH: Yes normal speech Skin: COMMON NORMALS: no rashes or lesions noted GENERAL SKIN EXAM: no rashes or lesions noted Course Vital Signs: Vital signs: Vital Signs Temperature 99.6 F 11/14/21 02:11 Pulse Rate 82 11/14/21 04:44 Respiratory Rate 18 11/14/21 04:44 Blood Pressure 152/74 11/14/21 04:44 Pulse Oximetry 94 11/14/21 04:44 Oxygen Delivery Me thod 11/14/21 03:30 Oxygen Flow Rate 2 11/14/21 03:30 MDM - SOB/Dyspnea Medical Decision Making He denies significant chest pain. EKG shows a sinus rhythm with RSR prime in V1, normal intervals, rate of 75, and no acute ST elevation. White blood cell count is 13. No definite infiltrate on chest x-ray. Potassium is 3.0, and is repleted. The patient is diuresed and given steroids as well as a breathing treatment with improvement in oxygenation status. Saturations are 97% on room 2 L. He will be allowed discharge. Steroid taper with albuterol treatments, and oxygen as needed in the residential. Lab Data : 11/14/21 02:20 11/14/21 02:20 Labs/Radiology: Radiology Impressions Chest X-Ray 11/14/21 02:34 IMPRESSION: No acute cardiopulmonary abnormality. Head CT 11/14/21 02:35 IMPRESSION: 1. No acute intracranial abnormality identified. 2. Diffuse cerebral atrophy similar to prior exam. 3. Moderate chronic microvascular ischemic disease, similar to prior exam. Laboratory Results WBC 13.1 10^3/uL (4.0-10.0) H 11/14/21 02:20 RBC 4.25 10^6/uL (4.1-5.3) 11/14/21 02:20 Hgb 12.6 g/dL (11.7-16.6) 11/14/21 02:20 Hct 39.0 % (42.0-52.0) L 11/14/21 02:20 MCV 91.8 fl (80-94) 11/14/21 02:20 MCH 29.6 pg (28.0-34.0) 11/14/21 02:20 MCHC 32.3 g/dL (30.0-36.0) 11/14/21 02:20 RDW 13.6 % (12.1-15.1) 11/14/21 02:20 Plt Count 343 10^3/cmm (130-400) 11/14/21 02:20 MPV 8.6 fL (7.4-10.4) 11/14/21 02:20 Neut % (Auto) 71.1 % 11/14/21 02:20 Lymph % (Auto) 12.8 % 11/14/21 02:20 [place] % (Auto) 7.6 % 11/14/21 02:20 Eos % (Auto) 6.9 % 11/14/21 02:20 Baso % (Auto) 0.8 % 11/14/21 02:20 Neut # (Auto) 9.32 10^3/uL (1.8-7.7) H 11/14/21 02:20 Lymph # (Auto) 1.7 10^3/uL (0.8-4.8) 11/14/21 02:20 [place] # (Auto) 1.0 10^3/uL (0.2-0.9) H 11/14/21 02:20 Eos # (Auto) 0.9 10^3/uL (0.0-0.8) H 11/14/21 02:20 Baso # (Auto) 0.1 10^3/uL (0.0-0.1) 11/14/21 02:20 Nucleated RBC % (auto) 0 % 11/14/21 02:20 Nucleated RBCs # 0.0 /100WBC 11/14/21 02:20 Specimen Type Arterial 11/14/21 03:00 Sample Site Radial, right 11/14/21 03:00 ABG pH 7.48 (7.35-7.45) H 11/14/21 03:00 ABG pCO2 42.7 mmHg (35-45) 11/14/21 03:00 ABG pO2 86.7 mmHg (80.0-100.0) 11/14/21 03:00 ABG HCO3 31.7 mmol/L (22-26) H 11/14/21 03:00 ABG Base Excess 7.4 mmol/L (-2.0-2.0) H 11/14/21 03:00 Joel Test Pos 11/14/21 03:00 Hematocrit 39.7 % (42-52) L 11/14/21 03:00 Hgb O2 Saturation 95.8 % (95-100) 11/14/21 03:00 Carboxyhemoglobin 1.4 %THgb (0.4-20.1) 11/14/21 03:00 Methemoglobin 0.9 % (0.4-1.5) 11/14/21 03:00 Total Hemoglobin 13.0 g/dL (14-18) L 11/14/21 03:00 O2 Delivery Device Nc 11/14/21 03:00 O2 Liters/Min 2.0 % 11/14/21 03:00 Flower Picker ID Angle 11/14/21 03:00 Sodium 141 mmol/L (136-145) 11/14/21 02:20 Potassium 3.0 mmol/L (3.5-5.1) L 11/14/21 02:20 Chloride 100 mmol/L (98-107) 11/14/21 02:20 Carbon Dioxide 33 mmol/L (22-29) H 11/14/21 02:20 Anion Gap 11.0 (5-19) 11/14/21 02:20 BUN 21 mg/dL (8-23) 11/14/21 02:20 Creatinine 1.2 mg/dL (0.7-1.2) 11/14/21 02:20 GFR Calculation 60.0 mL/min (90-130) L 11/14/21 02:20 Glucose 132 mg/dL (65-115) H 11/14/21 02:20 Calculated Osmolality 297 mOsm/kg (285-295) H 11/14/21 02:20 Lactic Acid 1.3 mmol/L (0.5-2.2) 11/14/21 03:05 Calcium 9.0 mg/dL (8.5-10.5) 11/14/21 02:20 Total Bilirubin 0.3 mg/dL (0.15-1.2) 11/14/21 02:20 AST 13 U/L (0-40) 11/14/21 02:20 ALT 19 U/L (0-41) 11/14/21 02:20 Alkaline Phosphatase 120 U/L (40-130) 11/14/21 02:20 NT-Pro-B Natriuret Pep 79 pg/mL (0-125) 11/14/21 02:20 Total Protein 7.4 g/dL (6.6-8.7) 11/14/21 02:20 Albumin 3.4 g/dL (3.5-5.2) L 11/14/21 02:20 Globulin 4.0 g/dL (1.3-4.6) 11/14/21 02:20 SARS-CoV-2 Ag (Rapid) negative (Negative) 11/14/21 03:56 Discharge Plan Discharge Patient Disposition: Home Clinical Impression: Acute exacerbation of chronic obstructive airways disease Condition: Stable Prescriptions: New Medrol (Brandan) 4 mg tablets,dose pack See Rx Instructions .ROUTE .COMPLEX Qty: 21 0RF Rx Instructions: orally per package directions albuterol sulfate 2.5 mg /3 mL (0.083 %) solution for nebulization 1.25 mg inhalation Q4H PRN (Reason: shortness of breath or wheezing) Qty: 180 0RF No Action amlodipine 10 mg tablet 10 mg PO DAILY aspirin 81 mg tablet,delayed release (DR/EC) 81 mg PO DAILY bupropion HCl 300 mg tablet extended release 24 hr 300 mg PO QAM calcium carbonate [Antacid (calcium carbonate)] 200 mg calcium (500 mg) tablet,chewable 400 mg PO DAILY citalopram 20 mg tablet 20 mg PO DAILY loratadine [Claritin] 10 mg tablet 10 mg PO DAILY docusate sodium [Colace] 100 mg capsule 100 mg PO DAILY fluticasone propion-salmeterol 250-50 mcg/dose blister with device 1 inh INHALATION BID lamotrigine 200 mg tablet 200 mg PO DAILY lisinopril 10 mg tablet 10 mg PO DAILY omeprazole 40 mg capsule,delayed release(DR/EC) 40 mg PO BID ropinirole 0.25 mg tablet 0.25 mg PO BID Discharge Orders: Discharge ED (Routine); Ordered 11/14/21 Ordered By: Polo Ramos Referrals: Quinton Doyle DO [Primary Care Provider] - 1-3 days Patient Instructions: COPD (Chronic Obstructive Pulmonary Disease) (DC), Opioid Safety, Pain Management Activity Restrictions/Additional Instructions: Medications as directed. Use albuterol every 4 hours while awake for the next 24 hours, then as needed. 2 L of oxygen for the next 48 hours, then as needed. Return for worsening shortness of breath despite treatment, continued fever, worsening mental status, chest pain, any other concerning symptoms. Coding Level of Care Code ED Poured Concrete Wall Technician for Chg Fwd Exam Comprehensive
[2021-11-14 02:41] LABS: Basophils # 0.1 10^3/uL (0.0-0.1); Basophils % 0.8 %; Eosinophils # 0.9 10^3/uL (0.0-0.8); Eosinophils % 6.9 %; Hemoglobin 12.6 g/dL (11.7-16.6); Lymphocytes # 1.7 10^3/uL (0.8-4.8); Lymphocytes % 12.8 %; Mean Corpuscular HGB Conc 32.3 g/dL (30.0-36.0); Mean Corpuscular Hemoglobin 29.6 pg (28.0-34.0); Mean Corpuscular Volume 91.8 fl (80-94); Mean Platelet Volume 8.6 fL (7.4-10.4); Monocytes % 7.6 %; Neutrophils # 9.32 10^3/uL (1.8-7.7); Neutrophils % 71.1 %; Nucleated Red Blood Cells % 0 %; Platelet Count 343 10^3/cmm (130-400); Red Blood Count 4.25 10^6/uL (4.1-5.3); Red Cell Distribution Width 13.6 % (12.1-15.1); White Blood Count 13.1 10^3/uL (4.0-10.0)
[2021-11-14] MEDS: FUROsemide 10 mg/mL SDV 10mL 80 MG IVP (02:43)
[2021-11-14 03:06] LABS: Alanine Aminotransferase 19 U/L (0-41); Albumin Level 3.4 g/dL (3.5-5.2); Alkaline Phosphatase 120 U/L (40-130); Aspartate Amino Transferase 13 U/L (0-40); Blood Urea Nitrogen 21 mg/dL (8-23); Carbon Dioxide 33 mmol/L (22-29); Chloride 100 mmol/L (98-107); Glucose 132 mg/dL (65-115); NT Pro B Type Natriuretic Pept 79 pg/mL (0-125); Osmolality Calculated 297 mOsm/kg (285-295); Sodium 141 mmol/L (136-145); Total Bilirubin 0.3 mg/dL (0.15-1.2); Total Protein 7.4 g/dL (6.6-8.7)
[2021-11-14 03:12] LABS: ABG PCO2 42.7 mmHg (35-45); ABG PH Result 7.48 (7.35-7.45); Arterial Blood Gas Hematocrit 39.7 % (42-52); Base Excess ABG 7.4 mmol/L (-2.0-2.0); Blood Gas Allen Test Pos; Blood Gas Operator Identificat WALCI; Blood Gas Sample Site Radial, right; Blood Gas Sample Type Arterial; Carboxyhemoglobin 1.4 %THgb (0.4-20.1); HCO3 ABG 31.7 mmol/L (22-26); HGB O2 Sat 95.8 % (95-100); Methemoglobin 0.9 % (0.4-1.5); Oxygen Device NC; PO2 ABG 86.7 mmHg (80.0-100.0)
[2021-11-14] MEDS: ipratropium-albuterol 3 mL Neb INHALATION (03:16)
[2021-11-14] MEDS: potassium chloride ER 20 mEq Tablet 40 MEQ PO (03:32)
[2021-11-14 03:38] LABS: Lactic Sepsis W/Reflex 1.3 mmol/L (0.5-2.2)
[2021-11-14 04:22] LABS: SARS Covid-2 Antigen negative (Negative)
== END 2021-11-14 05:16 | disposition home or self-care (01) ==
PROVIDERS: Emergency Provider Emergency Medicine; PCP Internal Medicine
DX: J44.1 Chronic obstructive pulmonary disease with (acute) exacerbation (principal)
CPT/HCPCS: 36600; 70450; 71045; 80053; 82805; 83605; 83880; 85025; 87426; 93005; 94640; 96374; 96375; 99285; J1940; J2930

== ENCOUNTER 2021-11-27 20:02 | Emergency (ER) | payer OTHER, SELFPAY ==
[2021-11-27] VITALS (7 sets, daily range): BP systolic 142–178; BP diastolic 91–111; PULSE 69–74; RESP 18–22; TEMP 36.8; O2SAT 93–97; BMI 34.4
--- NOTE | 2021-11-27 20:56 | W.ED.SOB ---
HPI - SOB/Dyspnea General: Chief Complaint: Shortness of Breath/Dyspnea Stated Complaint: SOB Time Seen by Provider: 11/27/21 20:17 Source: patient History of Present Illness: HPI Narrative: 71 year old male long term patient presents with shortness of breath. He has a history of heart failure, and his fluid restricted. His family had noted that he went over his fluid restriction by about a liter yesterday. They've noticed some increased swelling. He was requiring more oxygen therapy. The patient states that he has had a cough, with some sputum production, and has been wheezing at times. He was treated for something similar a couple of weeks ago with improvement initially. MD elicited complaint: shortness of breath Pertinent past history: COPD and congestive heart failure Onset (ago): hour(s) Context: recent illness Timing: constant Severity: similar to previous episodes Exacerbating factors: lying flat and exertion Relieving factors: oxygen Known history of: COPD and congestive heart failure Associated symptoms: Reports chest congestion, cough and extremity pain (chronic bilat LE edema and cellulitis ); Deny abdominal pain, chest pain, diaphoresis, dizziness, fever(s) or nausea Treatment prior to arrival: oxygen Review of Systems Const: Denies: fever(s) or diaphoresis Eyes: Denies: change in vision Card: Denies: chest pain Resp: Reports: chest congestion GI: Denies: abdominal pain or nausea Musc: Reports: extremity pain (chronic bilat LE edema and cellulitis ) Skin/Breast: Reports: rash Neuro: Denies: headache(s), weakness in extremities, dizziness or confusion PFS ED PFSH: Social History Smoking and tobacco status: former smoker Physical Exam Const: COMMON NORMALS: no acute distress GENERAL APPEARANCE: cooperative; not ill appearing and not frail appearing HENMT: COMMON NORMALS: normocephalic, atraumatic and Normal external nose present HEAD & SCALP: normocephalic and atraumatic FACE & SINUS: normal facial exam and face symmetric NOSE: Normal external nose present Eye: COMMON NORMALS: Equal, round and reactive pupils present and EOMs intact bilaterally PUPIL: Yes Equal, round and reactive pupils present Neck/C-Spine: GENERAL: Yes trachea midline Chest: CHEST: Yes Symmetrical chest wall rise Resp: COMMON NORMALS: normal respiratory effort, No retractions and No use of accessory muscles AUSCULTATION: wheezes and bronchovesicular breath sounds Cardio: COMMON NORMALS: regular rate and regular rhythm RATE: regular rate RHYTHM: regular rhythm GI: COMMON NORMALS: Normal to inspection, nondistended, normoactive bowel sounds present Extremity: GENERAL: Yes edema (with weeping stasis dermatitis and cellulitis bilaterally) Neuro: [place] COM[place] SCALE: document GCS findings [place] coma scale eye opening: Spontaneous [place] coma scale verbal response: Orientated [place] coma scale motor response: Obey commands [place] coma scale total score: 15 SENSORY EXAM: Yes extremities (intact) Psych: COMMON NORMALS: speech normal SPEECH: Yes normal speech Skin: COMMON NORMALS: no rashes or lesions noted GENERAL SKIN EXAM: no rashes or lesions noted Course Vital Signs: Vital signs: Vital Signs Temperature 98.3 F 11/27/21 20:08 Pulse Rate 72 11/28/21 00:51 Respiratory Rate 18 11/28/21 00:51 Blood Pressure 150/90 11/28/21 00:51 Pulse Oximetry 91 11/28/21 00:51 Oxygen Delivery Me thod 11/27/21 22:28 Oxygen Flow Rate 4 11/27/21 22:28 MDM - SOB/Dyspnea Medical Decision Making Mr. Presley is requiring some oxygen here, but has oxygen in the long term. His saturations have been quite good. He responded to breathing treatment, intravenous steroids, and a dose of lasix here. He is afebrile. His white blood cell count is mildly elevated. His potassium is 3.2 and is repleted here. His creatinine is 1.3. His chest X-ray shows no acute findings. COVID-19 rapid antigen is negative. His BNP is not elevated. He will be treated for an exacerbation of COPD, and allowed discharge to the long term. Lab Data : 11/27/21 20:11 11/27/21 20:11 Labs/Radiology: Radiology Impressions Chest X-Ray 11/27/21 20:57 IMPRESSION: No acute findings. Laboratory Results WBC 13.9 10^3/uL (4.0-10.0) H 11/27/21 20:11 RBC 4.57 10^6/uL (4.1-5.3) 11/27/21 20:11 Hgb 13.3 g/dL (11.7-16.6) 11/27/21 20:11 Hct 40.8 % (42.0-52.0) L 11/27/21 20:11 MCV 89.3 fl (80-94) 11/27/21 20:11 MCH 29.1 pg (28.0-34.0) 11/27/21 20:11 MCHC 32.6 g/dL (30.0-36.0) 11/27/21 20:11 RDW 13.8 % (12.1-15.1) 11/27/21 20:11 Plt Count 363 10^3/cmm (130-400) 11/27/21 20:11 MPV 9.4 fL (7.4-10.4) 11/27/21 20:11 Neut % (Auto) 78.5 % 11/27/21 20:11 Lymph % (Auto) 8.2 % 11/27/21 20:11 [place] % (Auto) 7.6 % 11/27/21 20:11 Eos % (Auto) 4.5 % 11/27/21 20:11 Baso % (Auto) 0.6 % 11/27/21 20:11 Neut # (Auto) 10.90 10^3/uL (1.8-7.7) H 11/27/21 20:11 Lymph # (Auto) 1.1 10^3/uL (0.8-4.8) 11/27/21 20:11 [place] # (Auto) 1.1 10^3/uL (0.2-0.9) H 11/27/21 20:11 Eos # (Auto) 0.6 10^3/uL (0.0-0.8) 11/27/21 20:11 Baso # (Auto) 0.1 10^3/uL (0.0-0.1) 11/27/21 20:11 Nucleated RBC % (auto) 0 % 11/27/21 20:11 Nucleated RBCs # 0.0 /100WBC 11/27/21 20:11 PT 13.20 SECONDS (12.1-14.9) 11/27/21 20:11 INR 0.97 (0.8-1.2) 11/27/21 20:11 Specimen Type Arterial 11/27/21 21:56 Sample Site Radial, left 11/27/21 21:56 ABG pH 7.49 (7.35-7.45) H 11/27/21 21:56 ABG pCO2 44.2 mmHg (35-45) 11/27/21 21:56 ABG pO2 91.7 mmHg (80.0-100.0) 11/27/21 21:56 ABG HCO3 33.5 mmol/L (22-26) H 11/27/21 21:56 ABG Base Excess 9.0 mmol/L (-2.0-2.0) H 11/27/21 21:56 Joel Test Pos 11/27/21 21:56 Hematocrit 40.5 % (42-52) L 11/27/21 21:56 Hgb O2 Saturation 96.4 % (95-100) 11/27/21 21:56 Carboxyhemoglobin 1.1 %THgb (0.4-20.1) 11/27/21 21:56 Methemoglobin 0.7 % (0.4-1.5) 11/27/21 21:56 Total Hemoglobin 13.2 g/dL (14-18) L 11/27/21 21:56 O2 Delivery Device Nc 11/27/21 21:56 O2 Liters/Min 4.0 % 11/27/21 21:56 Recording Studio Setup Worker ID [place] 11/27/21 21:56 Sodium 142 mmol/L (136-145) 11/27/21 20:11 Potassium 3.2 mmol/L (3.5-5.1) L 11/27/21 20:11 Chloride 97 mmol/L (98-107) L 11/27/21 20:11 Carbon Dioxide 32 mmol/L (22-29) H 11/27/21 20:11 Anion Gap 16.2 (5-19) 11/27/21 20:11 BUN 22 mg/dL (8-23) 11/27/21 20:11 Creatinine 1.3 mg/dL (0.7-1.2) H 11/27/21 20:11 GFR Calculation 54.6 mL/min (90-130) L 11/27/21 20:11 Glucose 118 mg/dL (65-115) H 11/27/21 20:11 Calculated Osmolality 298 mOsm/kg (285-295) H 11/27/21 20:11 Lactic Acid 0.9 mmol/L (0.5-2.2) 11/27/21 21:16 Calcium 9.0 mg/dL (8.5-10.5) 11/27/21 20:11 Total Bilirubin 0.3 mg/dL (0.15-1.2) 11/27/21 20:11 AST 12 U/L (0-40) 11/27/21 20:11 ALT 20 U/L (0-41) 11/27/21 20:11 Alkaline Phosphatase 116 U/L (40-130) 11/27/21 20:11 NT-Pro-B Natriuret Pep 59 pg/mL (0-125) 11/27/21 20:11 Total Protein 7.6 g/dL (6.6-8.7) 11/27/21 20:11 Albumin 3.7 g/dL (3.5-5.2) 11/27/21 20:11 Globulin 3.9 g/dL (1.3-4.6) 11/27/21 20:11 SARS-CoV-2 Ag (Rapid) negative (Negative) 11/27/21 21:21 Discharge Plan Discharge Patient Disposition: Home Clinical Impression: Acute exacerbation of chronic obstructive airways disease Condition: Stable Prescriptions: New prednisone 10 mg tablet See Rx Instructions .ROUTE .COMPLEX Qty: 37 0RF Rx Instructions: prednisone 5 mg: take 8 tablets (40 mg) on Day 1; 7 tablets (35 mg) on Day 2; then decrease by 1 tablet every day until finished No Action amlodipine 10 mg tablet 10 mg PO DAILY aspirin 81 mg tablet,delayed release (DR/EC) 81 mg PO DAILY bupropion HCl 300 mg tablet extended release 24 hr 300 mg PO QAM calcium carbonate [Antacid (calcium carbonate)] 200 mg calcium (500 mg) tablet,chewable 400 mg PO DAILY citalopram 20 mg tablet 20 mg PO DAILY loratadine [Claritin] 10 mg tablet 10 mg PO DAILY docusate sodium [Colace] 100 mg capsule 100 mg PO DAILY fluticasone propion-salmeterol 250-50 mcg/dose blister with device 1 inh INHALATION BID lamotrigine 200 mg tablet 200 mg PO DAILY lisinopril 10 mg tablet 10 mg PO DAILY omeprazole 40 mg capsule,delayed release(DR/EC) 40 mg PO BID ropinirole 0.25 mg tablet 0.25 mg PO BID Medrol (Brandan) 4 mg tablets,dose pack See Rx Instructions .ROUTE .COMPLEX Qty: 21 0RF Rx Instructions: orally per package directions albuterol sulfate 2.5 mg /3 mL (0.083 %) solution for nebulization 1.25 mg inhalation Q4H PRN (Reason: shortness of breath or wheezing) Qty: 180 0RF Discharge Orders: Discharge ED (Routine); Ordered 11/28/21 Ordered By: Polo Ramos Referrals: Quinton Doyle DO [Primary Care Provider] - 1-3 days Patient Instructions: COPD (Chronic Obstructive Pulmonary Disease) (ED), Opioid Safety, Pain Management Activity Restrictions/Additional Instructions: Return for fever greater than 100, worsening shortness of breath despite treatment, chest discomfort, other concerning symptoms. Use albuterol nebulizer scheduled every 4 hours while awake for the next 24 hours, then as needed Coding Level of Care Code ED Service Delivery Supervisor for Raul Herron
--- NOTE | 2021-11-27 20:57 | XRR_ITS ---
PROCEDURE INFORMATION: Exam: XR Chest Exam date and time: 11/27/2021 9:06 PM Age: 71 years old Clinical indication: Shortness of breath; Additional info: SOB TECHNIQUE: Imaging protocol: Radiologic exam of the chest. Views: 1 view. COMPARISON: CR (CHEST, ) 11/14/2021 2:46 AM FINDINGS: Lungs: Lungs are clear. Pleural spaces: There is no pleural effusion or pneumothorax. Heart/Mediastinum: Cardiomediastinal contours are unremarkable. Bones/joints: Moderate degenerative disease at the right shoulder. No acute fracture. XR/XR chest 1V portable [id number] IMPRESSION: No acute findings.
[2021-11-27 21:05] LABS: Basophils # 0.1 10^3/uL (0.0-0.1); Basophils % 0.6 %; Eosinophils # 0.6 10^3/uL (0.0-0.8); Eosinophils % 4.5 %; Hematocrit 40.8 % (42.0-52.0); Hemoglobin 13.3 g/dL (11.7-16.6); Lymphocytes # 1.1 10^3/uL (0.8-4.8); Lymphocytes % 8.2 %; Mean Corpuscular HGB Conc 32.6 g/dL (30.0-36.0); Mean Corpuscular Hemoglobin 29.1 pg (28.0-34.0); Mean Corpuscular Volume 89.3 fl (80-94); Mean Platelet Volume 9.4 fL (7.4-10.4); Monocytes # 1.1 10^3/uL (0.2-0.9); Monocytes % 7.6 %; Neutrophils % 78.5 %; Nucleated Red Blood Cells % 0 %; Platelet Count 363 10^3/cmm (130-400); Red Blood Count 4.57 10^6/uL (4.1-5.3); Red Cell Distribution Width 13.8 % (12.1-15.1); White Blood Count 13.9 10^3/uL (4.0-10.0)
[2021-11-27 21:12] LABS: INR 0.97 (0.8-1.2)
[2021-11-27] MEDS: FUROsemide 10 mg/mL SDV 10mL 80 MG IVP (21:16)
[2021-11-27 21:27] LABS: Alanine Aminotransferase 20 U/L (0-41); Albumin Level 3.7 g/dL (3.5-5.2); Alkaline Phosphatase 116 U/L (40-130); Anion Gap 16.2 (5-19); Aspartate Amino Transferase 12 U/L (0-40); Blood Urea Nitrogen 22 mg/dL (8-23); Carbon Dioxide 32 mmol/L (22-29); Chloride 97 mmol/L (98-107); Globulin 3.9 g/dL (1.3-4.6); Glomerular Filtration Rate 54.6 mL/min (90-130); Glucose 118 mg/dL (65-115); NT Pro B Type Natriuretic Pept 59 pg/mL (0-125); Osmolality Calculated 298 mOsm/kg (285-295); Potassium 3.2 mmol/L (3.5-5.1); Sodium 142 mmol/L (136-145); Total Bilirubin 0.3 mg/dL (0.15-1.2); Total Protein 7.6 g/dL (6.6-8.7)
[2021-11-27 21:55] LABS: Lactic Sepsis W/Reflex 0.9 mmol/L (0.5-2.2)
[2021-11-27 21:59] LABS: SARS Covid-2 Antigen negative (Negative)
[2021-11-27 22:07] LABS: ABG PCO2 44.2 mmHg (35-45); ABG PH Result 7.49 (7.35-7.45); Arterial Blood Gas Hematocrit 40.5 % (42-52); Blood Gas Allen Test Pos; Blood Gas Operator Identificat WALCI; Blood Gas Sample Site Radial, left; Blood Gas Sample Type Arterial; Carboxyhemoglobin 1.1 %THgb (0.4-20.1); HCO3 ABG 33.5 mmol/L (22-26); HGB O2 Sat 96.4 % (95-100); Methemoglobin 0.7 % (0.4-1.5); Oxygen Device NC; PO2 ABG 91.7 mmHg (80.0-100.0); Total Hemoglobin 13.2 g/dL (14-18)
[2021-11-27] MEDS: ipratropium-albuterol 3 mL Neb INHALATION (22:28)
[2021-11-28 00:16] VITALS: BP 139/85; PULSE 73; RESP 18; O2SAT 97
[2021-11-28] MEDS: potassium chloride oral liq 20 mEq/15 mL UDC 40 MEQ PO (00:29)
[2021-11-28 00:51] VITALS: BP 150/90; PULSE 72; RESP 18; O2SAT 91
[2021-11-29 11:53] LABS: Bacillus cereus group Not Detected (NOT DETECT); Bacillus subtillis group Not Detected (NOT DETECT); Corynebacterium Not Detected (NOT DETECT); Cutibacterium acnes (P.acnes) Not Detected (NOT DETECT); Enterococcus Not Detected (NOT DETECT); Enterococcus faecalis Not Detected (NOT DETECT); Enterococcus faecium Not Detected (NOT DETECT); Lactobacillus species Not Detected (NOT DETECT); Listeria Not Detected (NOT DETECT); Listeria monocytogenes Not Detected (NOT DETECT); Micrococcus Not Detected (NOT DETECT); Pan Candida Not Detected (NOT DETECT); Pan Gram-Negative Not Detected (NOT DETECT); Staphylococcus epidermidis Not Detected (NOT DETECT); Staphylococcus lugdunensis Not Detected (NOT DETECT); Staphylococcus species Not Detected (NOT DETECT); Streptococcus agalactiae Not Detected (NOT DETECT); Streptococcus anginosus group Not Detected (NOT DETECT); Streptococcus pneumoniae Not Detected (NOT DETECT); Streptococcus pyogenes Not Detected (NOT DETECT); Streptococcus species Detected (NOT DETECT)
== END 2021-11-28 01:19 | disposition home or self-care (01) ==
PROVIDERS: Emergency Provider Emergency Medicine; PCP Internal Medicine
DX: J44.1 Chronic obstructive pulmonary disease with (acute) exacerbation (principal); Z79.82 Long term (current) use of aspirin; Z20.822 Contact with and (suspected) exposure to COVID-19; Z87.891 Personal history of nicotine dependence
CPT/HCPCS: 36415; 36600; 71045; 80053; 82805; 83605; 83880; 85025; 85610; 87040; 87150; 87205; 87426; 94640; 96374; 96375; 99285; J1940; J2930

== ENCOUNTER 2022-12-11 03:13 | Emergency (ER) | payer OTHER, SELFPAY ==
[2022-12-11 03:13] VITALS: BP 147/92; PULSE 65; RESP 18; TEMP 37.4; O2SAT 96; BMI 33.3
[2022-12-11 03:28] VITALS: BP 165/87; PULSE 63; O2SAT 97
--- NOTE | 2022-12-11 03:29 | XRR_ITS ---
PROCEDURE INFORMATION: Exam: XR Chest Exam date and time: 12/11/2022 3:31 AM Age: 72 years old Clinical indication: Shortness of breath; Patient HX: C/O SOB. History of copd. TECHNIQUE: Imaging protocol: Radiologic exam of the chest. Views: 1 view. COMPARISON: CR XR chest 1V portable [id number] 11/27/2021 9:06 PM FINDINGS: Lungs: Unremarkable. No consolidation. Pleural spaces: Unremarkable. No pleural effusion. No pneumothorax. Heart/Mediastinum: Unremarkable. No cardiomegaly. Bones/joints: Unremarkable. XR/XR chest 1V portable [id number] IMPRESSION: No acute findings.
[2022-12-11 03:47] LABS: Basophils % 0.5 %; Eosinophils # 0.3 10^3/uL (0.0-0.8); Eosinophils % 3.5 %; Hematocrit 42.2 % (37-53); Lymphocytes % 12.1 %; Mean Corpuscular HGB Conc 32.5 g/dL (30-55); Mean Corpuscular Hemoglobin 29.2 pg (27-33); Mean Platelet Volume 8.8 fL (7.4-10.4); Monocytes # 1.3 10^3/uL (0.2-0.9); Monocytes % 16.5 %; Neutrophils # 5.19 10^3/uL (1.8-7.7); Neutrophils % 66.4 %; Nucleated Red Blood Cells % 0 %; Platelet Count 270 10^3/cmm (157-399); Red Blood Count 4.69 10^6/uL (3.85-5.65); Red Cell Distribution Width 13.8 % (12.1-15.1); White Blood Count 7.82 10^3/uL (3.29-11.43)
--- NOTE | 2022-12-11 04:04 | W.ED.SOB ---
HPI - SOB/Dyspnea General: Chief Complaint: Shortness of Breath/Dyspnea Stated Complaint: SOB Time Seen by Provider: 12/11/22 03:17 History of Present Illness: HPI Narrative: 72-year-old male with a history of heart failure and COPD. He presents with shortness of breath and increased oxygen demand. [facility] [place] [facility] [place] [facility], and had low saturations there. He is currently on 3 L now, satting 97%. There is concern because he is on 2 L of fluid restriction, and had upwards of 4 L in the last 24 hours or so. He endorses a mild cough without sputum production, some lower extremities welling. No fever. Associated symptoms: Deny abdominal pain, chest pain, fever(s), nausea, palpitations or vomiting Review of Systems Const: Denies: fever(s) ENMT: Denies: throat pain Card: Denies: chest pain or palpitations Resp: Reports: dyspnea and non-productive cough GI: Denies: abdominal pain, nausea or vomiting PFSH ED PFSH: Social History Smoking and tobacco/nicotine status: former use of tobacco/nicotine Physical Exam Const: GENERAL APPEARANCE: cooperative, ill appearing (Mildly) and frail appearing ORIENTATION/CONSCIOUSNESS: Yes awake, Yes oriented to person and Yes oriented to place HENMT: COMMON NORMALS: normocephalic, atraumatic and Normal external nose present HEAD & SCALP: normocephalic and atraumatic FACE & SINUS: normal facial exam and face symmetric NOSE: Normal external nose present Eye: COMMON NORMALS: Equal, round and reactive pupils present and EOMs intact bilaterally PUPIL: Yes Equal, round and reactive pupils present Neck/C-Spine: GENERAL: Yes trachea midline Chest: CHEST: Yes Symmetrical chest wall rise Resp: COMMON NORMALS: normal respiratory effort, No retractions, No use of accessory muscles and clear to auscultation bilaterally AUSCULTATION: clear to auscultation bilaterally Cardio: COMMON NORMALS: regular rate and regular rhythm RATE: regular rate RHYTHM: regular rhythm GI: COMMON NORMALS: Normal to inspection, nondistended, normoactive bowel sounds present Extremity: NARRATIVE EXTREMITY EXAM: Examination of the bilateral lower extremities reveals significant lower extremity edema present. There is skin change related to stasis dermatitis with ulcerations bilaterally as well. No active cellulitis present. GENERAL: Yes edema Neuro: [place] COMA SCALE: document GCS findings [place] coma scale eye opening: Spontaneous [place] coma scale verbal response: Orientated [place] coma scale motor response: Obey commands [place] coma scale total score: 15 SENSORIUM/ORIENTATION: Yes oriented to person and Yes oriented to place SENSORY EXAM: Yes extremities (intact) Psych: COMMON NORMALS: speech normal SPEECH: Yes normal speech Skin: COMMON NORMALS: no rashes or lesions noted GENERAL SKIN EXAM: no rashes or lesions noted Course Vital Signs: Vital signs: Vital Signs Temperature 99.4 F 12/11/22 03:13 Pulse Rate 64 12/11/22 04:44 Respiratory Rate 18 12/11/22 04:44 Blood Pressure 123/84 12/11/22 04:43 Pulse Oximetry 96 12/11/22 04:44 Oxygen Delivery Me thod Nasal Cannula 12/11/22 04:44 Oxygen Flow Rate 3 12/11/22 04:44 MDM - SOB/Dyspnea Medical Decision Making Chest x-ray reveals pulmonary vascular congestion. No effusions. No infiltrates. CBC is normal. Creatinine is 1.3. BNP is normal. Blood gas reveals a pH of 7.45 PCO2 of 46, PO2 89. This is a well compensated respiratory acidosis. Patient is in no distress. He will be allowed to discharge after COVID is resulted. Lab Data 12/11/22 03:19 12/11/22 03:19 Labs/Radiology: Radiology Impressions Chest X-Ray 12/11/22 03:29 IMPRESSION: No acute findings. Laboratory Results WBC 7.82 10^3/uL (3.29-11.43) 12/11/22 03:19 RBC 4.69 10^6/uL (3.85-5.65) 12/11/22 03:19 Hgb 13.70 g/dL (11.27-16.99) 12/11/22 03:19 Hct 42.2 % (37-53) 12/11/22 03:19 MCV 90.0 fl (82-101) 12/11/22 03:19 MCH 29.2 pg (27-33) 12/11/22 03:19 MCHC 32.5 g/dL (30-55) 12/11/22 03:19 RDW 13.8 % (12.1-15.1) 12/11/22 03:19 Plt Count 270 10^3/cmm (157-399) 12/11/22 03:19 MPV 8.8 fL (7.4-10.4) 12/11/22 03:19 Neut % (Auto) 66.4 % 12/11/22 03:19 Lymph % (Auto) 12.1 % 12/11/22 03:19 [place] % (Auto) 16.5 % 12/11/22 03:19 Eos % (Auto) 3.5 % 12/11/22 03:19 Baso % (Auto) 0.5 % 12/11/22 03:19 Neut # (Auto) 5.19 10^3/uL (1.8-7.7) 12/11/22 03:19 Lymph # (Auto) 1.0 10^3/uL (0.8-4.8) 12/11/22 03:19 [place] # (Auto) 1.3 10^3/uL (0.2-0.9) H 12/11/22 03:19 Eos # (Auto) 0.3 10^3/uL (0.0-0.8) 12/11/22 03:19 Baso # (Auto) 0.0 10^3/uL (0.0-0.1) 12/11/22 03:19 Nucleated RBC % (auto) 0 % 12/11/22 03:19 Nucleated RBCs # 0.0 /100WBC 12/11/22 03:19 Specimen Type Arterial 12/11/22 04:35 Sample Site Brachial, left 12/11/22 04:35 ABG pH 7.45 (7.35-7.45) 12/11/22 04:35 ABG pCO2 46.0 mmHg (35-45) H 12/11/22 04:35 ABG pO2 89.4 mmHg (80.0-100.0) 12/11/22 04:35 ABG HCO3 31.9 mmol/L (22-26) H 12/11/22 04:35 ABG Base Excess 6.8 mmol/L (-2.0-2.0) H 12/11/22 04:35 Joel Test N/a 12/11/22 04:35 Hematocrit 42.2 % (42-52) 12/11/22 04:35 Hgb O2 Saturation 95.4 % (95-100) 12/11/22 04:35 Carboxyhemoglobin 0.8 %THgb (0.4-20.1) 12/11/22 04:35 Methemoglobin 0.5 % (0.4-1.5) 12/11/22 04:35 Total Hemoglobin 13.8 g/dL (14-18) L 12/11/22 04:35 O2 Delivery Device Nc 12/11/22 04:35 O2 Liters/Min 3.0 % 12/11/22 04:35 Hat Blocking Operator ID [email or web address] 12/11/22 04:35 Sodium 139 mmol/L (136-145) 12/11/22 03:19 Potassium 3.7 mmol/L (3.5-5.1) 12/11/22 03:19 Chloride 100 mmol/L (98-107) 12/11/22 03:19 Carbon Dioxide 28 mmol/L (22-29) 12/11/22 03:19 Anion Gap 14.7 (5-19) 12/11/22 03:19 BUN 21 mg/dL (8-23) 12/11/22 03:19 Creatinine 1.3 mg/dL (0.7-1.2) H 12/11/22 03:19 GFR Calculation Not Reportable 12/11/22 03:19 Glucose 97 mg/dL (65-115) 12/11/22 03:19 Calculated Osmolality 291 mOsm/kg (285-295) 12/11/22 03:19 Lactic Acid 0.8 mmol/L (0.5-2.2) 12/11/22 04:07 Calcium 9.1 mg/dL (8.5-10.5) 12/11/22 03:19 Total Bilirubin 0.5 mg/dL (0.15-1.2) 12/11/22 03:19 AST 14 U/L (0-40) 12/11/22 03:19 ALT 19 U/L (0-41) 12/11/22 03:19 Alkaline Phosphatase 105 U/L (40-130) 12/11/22 03:19 NT-Pro-B Natriuret Pep 41 pg/mL (0-125) 12/11/22 03:19 Total Protein 7.6 g/dL (6.6-8.7) 11/06/23 03:19 Albumin 3.7 g/dL (3.5-5.2) 12/11/22 03:19 Globulin 3.9 g/dL (1.3-4.6) 12/11/22 03:19 SARS-CoV-2 Ag (Rapid) negative (Negative) 12/11/22 04:44 All radiology interpretation(s) finalized by discharge Discharge Plan Discharge Patient Disposition: Home Clinical Impression: Congestive heart failure, Acute exacerbation of chronic obstructive airways disease Clinical Impression: (Ruled Out): Community acquired pneumonia, Pulmonary embolism Condition: Stable Prescriptions: New Medrol (Brandan) 4 mg tablets,dose pack See Rx Instructions .ROUTE .COMPLEX Qty: 21 0RF Rx Instructions: orally per package directions furosemide 40 mg tablet 40 mg PO BID Qty: 6 0RF No Action amlodipine 10 mg tablet 10 mg PO DAILY aspirin 81 mg tablet,delayed release (DR/EC) 81 mg PO DAILY bupropion HCl 300 mg tablet extended release 24 hr 300 mg PO QAM calcium carbonate [Antacid (calcium carbonate)] 200 mg calcium (500 mg) tablet,chewable 400 mg PO DAILY citalopram 20 mg tablet 20 mg PO DAILY loratadine [Claritin] 10 mg tablet 10 mg PO DAILY docusate sodium [Colace] 100 mg capsule 100 mg PO DAILY fluticasone propion-salmeterol 250-50 mcg/dose blister with device 1 inh INHALATION BID lamotrigine 200 mg tablet 200 mg PO DAILY lisinopril 10 mg tablet 10 mg PO DAILY omeprazole 40 mg capsule,delayed release(DR/EC) 40 mg PO BID ropinirole 0.25 mg tablet 0.25 mg PO BID Medrol (Brandan) 4 mg tablets,dose pack See Rx Instructions .ROUTE .COMPLEX Qty: 21 0RF Rx Instructions: orally per package directions albuterol sulfate 2.5 mg /3 mL (0.083 %) solution for nebulization 1.25 mg inhalation Q4H PRN (Reason: shortness of breath or wheezing) Qty: 180 0RF prednisone 10 mg tablet See Rx Instructions .ROUTE .COMPLEX Qty: 37 0RF Rx Instructions: prednisone 5 mg: take 8 tablets (40 mg) on Day 1; 7 tablets (35 mg) on Day 2; then decrease by 1 tablet every day until finished Discharge Orders: Discharge ED (Routine); Ordered 12/11/22 Ordered By: Polo Ramos Referrals: Quinton Doyle DO [Primary Care Provider] - Patient Instructions: Heart Failure (ED), COPD (Chronic Obstructive Pulmonary Disease) (ED), Opioid Safety, Pain Management Activity Restrictions/Additional Instructions: Lasix twice daily for 3 days. Steroid taper as directed. Use albuterol treatments ordered every 4 hours while awake for the first 48 hours, scheduled, then as needed following. Return for worsening shortness of breath, fever, other concerning symptoms. Continue to limit fluids as described and fluid restriction. Coding Level of Care Code ED Membership Solicitor for Raul Herron
[2022-12-11 04:23] LABS: Alanine Aminotransferase 19 U/L (0-41); Albumin Level 3.7 g/dL (3.5-5.2); Alkaline Phosphatase 105 U/L (40-130); Aspartate Amino Transferase 14 U/L (0-40); Blood Urea Nitrogen 21 mg/dL (8-23); Calcium 9.1 mg/dL (8.5-10.5); Carbon Dioxide 28 mmol/L (22-29); Chloride 100 mmol/L (98-107); Globulin 3.9 g/dL (1.3-4.6); Glucose 97 mg/dL (65-115); NT Pro B Type Natriuretic Pept 41 pg/mL (0-125); Osmolality Calculated 291 mOsm/kg (285-295); Sodium 139 mmol/L (136-145); Total Bilirubin 0.5 mg/dL (0.15-1.2); Total Protein 7.6 g/dL (6.6-8.7)
[2022-12-11 04:24] LABS: Anion Gap 14.7 (5-19); Potassium 3.7 mmol/L (3.5-5.1)
[2022-12-11 04:30] LABS: Lactic Sepsis W/Reflex 0.8 mmol/L (0.5-2.2)
[2022-12-11 04:35] VITALS: PULSE 63; RESP 18; O2SAT 96
[2022-12-11] MEDS: nitroglycerin 1 gm/inch oint Pkt 1 INCH TOPICAL (04:36)
[2022-12-11] MEDS: ipratropium-albuterol 3 mL Neb INHALATION (04:41)
[2022-12-11] MEDS: FUROsemide 10 mg/mL SDV 10mL 80 MG IVP (04:41)
[2022-12-11 04:43] VITALS: BP 123/84; PULSE 65; RESP 20; O2SAT 96
[2022-12-11 04:44] VITALS: PULSE 64; RESP 18; O2SAT 96
[2022-12-11 04:44] LABS: ABG PH Result 7.45 (7.35-7.45); Arterial Blood Gas Hematocrit 42.2 % (42-52); Base Excess ABG 6.8 mmol/L (-2.0-2.0); Blood Gas Sample Site Brachial, left; Blood Gas Sample Type Arterial; Carboxyhemoglobin 0.8 %THgb (0.4-20.1); HCO3 ABG 31.9 mmol/L (22-26); HGB O2 Sat 95.4 % (95-100); Methemoglobin 0.5 % (0.4-1.5); Oxygen Device NC; PO2 ABG 89.4 mmHg (80.0-100.0); Total Hemoglobin 13.8 g/dL (14-18)
[2022-12-11 05:14] LABS: SARS Covid-2 Antigen negative (Negative)
[2022-12-11 06:26] VITALS: BP 150/92; PULSE 69; RESP 20; O2SAT 95
== END 2022-12-11 06:22 | disposition home or self-care (01) ==
PROVIDERS: Emergency Provider Emergency Medicine; PCP Internal Medicine
DX: J44.1 Chronic obstructive pulmonary disease with (acute) exacerbation (principal); I11.0 Hypertensive heart disease with heart failure; I50.9 Heart failure, unspecified; Z79.82 Long term (current) use of aspirin; Z11.52 Encounter for screening for COVID-19; Z87.891 Personal history of nicotine dependence
CPT/HCPCS: 36415; 36600; 71045; 80053; 82805; 83605; 83880; 85025; 87426; 94640; 96374; 99284; J1940